=== PATIENT | male | born 1980 ===

== ENCOUNTER 2017-09-20 08:26 | Emergency (ER) | payer OTHER ==
[2017-09-20 08:32] VITALS: BP 134/84; PULSE 109; TEMP 97; O2SAT 97
[2017-09-20 08:33] VITALS: BMI 32.0
[2017-09-20] MEDS ORDERED: Sodium Chloride 0.9% 1,000 ML IV STA ×2 (09:20→09:23)
--- NOTE | 2017-09-20 09:31 | ED PDOC ---
HPI: Abdomen Time Seen by Provider: 09/20/17 09:20 Chief Complaint (Nursing): Abdominal Pain Chief Complaint (Provider): abdominal pain, headache History Per: Patient History/Exam Limitations: no limitations Onset/Duration Of Symptoms: Gradual Outside of [place] travel?: No Current Symptoms Are (Timing): Intermittent Episodes Severity: Mild Location Of Pain/Discomfort: Diffuse Quality Of Discomfort: Cramping Associated Symptoms: Fever, Nausea, Loss Of Appetite, Chest Pain. denies: Diarrhea, Back Pain Exacerbating Factors: None Alleviating Factors: None Additional Complaint(s): 36yo male c/o ongoing abdominal discomfort associated w headache, chills, sore throat. Denies syncope, SOB or melena. Has history etoh abuse, last drink yesterday. Old charts reviewed, seen last night at [facility] had CT brain performed. Past Medical History Reviewed: Historical Data Vital Signs: Last Vital Signs Temp 97 F L 09/20/17 08:32 Pulse 109 H 09/20/17 08:32 Resp BP 134/84 09/20/17 08:32 Pulse Ox 97 09/20/17 09:31 - Medical History PMH: Gastritis, HTN, Seizures Denies: Sexually Transmitted Disease - Surgical History Surgical History: No Surg Hx - Family History Family History: States: Unknown Family Hx - Living Arrangements Living Arrangements: Other - Social History Alcohol: > 2 Drinks/Day - Immunization History Hx Tetanus Toxoid Vaccination: Yes (2014) Hx Influenza Vaccination: Yes Hx Pneumococcal Vaccination: No - Home Medications Home Medications: Ambulatory Orders Medication Instructions Recorded Famotidine [Pepcid] 20 mg PO BID PRN #15 tab 07/15/17 Ondansetron ODT [Zofran ODT] 1 odt PO BID PRN #6 odt 09/18/17 Ergocalciferol [Drisdol 50,000 1 cap PO Q7D #3 cap 09/24/17 Intl Units Cap] Pantoprazole [Protonix EC Tab] 40 mg PO DAILY #30 ect 09/24/17 traZODone [Desyrel] 100 mg PO HS PRN #30 tab 09/24/17 - Allergies Allergies/Adverse Reactions: Allergies Allergy/AdvReac Type Severity Reaction Status Date / Time No Known Allergies Allergy Verified 09/27/17 06:39 Review of Systems ROS Statement: Except As Marked, All Systems Reviewed And Found Negative Constitutional: Positive for: Chills ENT: Positive for: Throat Pain. Negative for: Nose Discharge, Throat Swelling Cardiovascular: Positive for: Chest Pain. Negative for: Palpitations Respiratory: Negative for: Shortness of Breath Gastrointestinal: Positive for: Abdominal Pain. Negative for: Melena, Hematochezia Genitourinary Male: Negative for: Dysuria Musculoskeletal: Negative for: Neck Pain, Shoulder Pain Skin: Negative for: Rash, Lesions, Jaundice Neurological: Positive for: Headache, Dizziness Psych: Negative for: Anxiety Physical Exam - Reviewed Nursing Documentation Reviewed: Yes Vital Signs Reviewed: Yes - Physical Exam Appears: Positive for: Well, Non-toxic, No Acute Distress Head Exam: Positive for: ATRAUMATIC, NORMAL INSPECTION, NORMOCEPHALIC Skin: Positive for: Normal Color, Warm, DRY Eye Exam: Positive for: EOMI, PERRL, Other (old appearing ecchymosis L periorit) . Negative for: Periorbital swelling, Periorbital tenderness ENT: Positive for: Normal ENT Inspection Neck: Positive for: Normal, Painless ROM Cardiovascular/Chest: Positive for: Regular Rate, Rhythm Respiratory: Positive for: CNT, Normal Breath Sounds Gastrointestinal/Abdominal: Positive for: Normal Exam, Bowel Sounds, Soft Back: Positive for: Normal Inspection Extremity: Positive for: Normal ROM, Other (old appearintg ecchymosis L arm and R upper arm) Neurologic/Psych: Positive for: Alert, Oriented. Negative for: Motor/Sensory Deficits, Facial Droop - Laboratory Results Result Diagrams: 09/20/17 09:45 09/20/17 09:45 - ECG O2 Sat by Pulse Oximetry: 97 Medical Decision Making Medical Decision Making: labs reviewed, revealed mild alcohol intoxication monitored in ED for several hours, no signs etoh withdrawal, abdomen nontender and mental status at baseline DC from ED Disposition - Clinical Impression Clinical Impression: Abdominal discomfort, Alcohol abuse - Patient ED Disposition Is Patient to be Admitted: No Counseled Patient/Family Regarding: Studies Performed, Diagnosis, Need For Followup, Rx Given - Disposition Referrals: [facility] [Outside] Disposition: Routine/Home Disposition Time: 13:55 Condition: FAIR Instructions: Abuse of Alcohol (ED) Forms: [facility] (Belarusian) Print Language: CZECH
[2017-09-20 10:08] LABS: BASO % 0.2 % (0.0-2.0); EOS % 0.1 % (0.0-4.0); HEMOGLOBIN 12.2 g/dL (12.0-18.0); LYMPH % 15.8 % (20.0-40.0); MEAN CELL VOLUME 86.1 fl (80.0-94.0); MEAN CORPUSCULAR HEMOGLOBIN 29.3 pg (27.0-31.0); MEAN PLATELET VOLUME 8.7 fl (7.2-11.7); MONO # 0.4 K/uL (0.0-0.8); MONO % 6.4 % (0.0-10.0); NEUT # 4.7 K/uL (1.8-7.0); NEUT % 77.5 % (50.0-75.0); NRBC % 0.1 % (0.0-0.0); RBC 4.18 Mil/uL (4.40-5.90); RED CELL DISTRIBUTION WIDTH 14.6 % (11.5-14.5)
[2017-09-20 10:12] LABS: ALB/GLOB RATIO 0.9 (1.0-2.1); ALBUMIN 3.4 g/dL (3.5-5.0); ALT/SGPT 110 U/L (21-72); AST/SGOT 252 U/L (17-59); BLOOD UREA NITROGEN 10 mg/dl (9-20); CALCIUM 7.7 mg/dL (8.4-10.2); GFR AFRICAN-AMERICAN > 60; GFR NON-AFRICAN AMERICAN > 60; LIPASE 510 U/L (23-300)
[2017-09-20 12:40] LABS: SQUAMOUS EPITHIAL 1 /hpf (0-5); URINE BACTERIA RARE (<OCC); URINE BILIRUBIN NEGATIVE (NEGATIVE); URINE BLOOD NEGATIVE (NEGATIVE); URINE CLARITY SLIGHTY-CLOUDY (Clear); URINE COLOR YELLOW (YELLOW); URINE GLUCOSE (UA) NEG (Normal); URINE LEUKOCYTE ESTERASE NEG Leu/uL (Negative); URINE NITRATE NEGATIVE (NEGATIVE); URINE PROTEIN NEGATIVE (NEGATIVE)
--- NOTE | 2017-09-20 13:22 | CARD ---
APPROVED REPORT EKG Measurement Heart [id number] VA 136P-2 [id number] <Conclusion> Normal sinus rhythm Normal ECG
== END 2017-09-20 14:17 | disposition home or self-care (01) ==
LOC: H.ER 08:26
DX: F10.10 Alcohol abuse, uncomplicated (principal); R10.9 Unspecified abdominal pain; I10 Essential (primary) hypertension
CPT/HCPCS: 80053; 81003; 83690; 84484; 85025; 87804; 93005; 96360; 99282; G0480; J1885; J7040

== ENCOUNTER 2017-09-27 06:13 | Emergency (ER) | payer OTHER ==
[2017-09-27 06:16] VITALS: BMI 32.0
[2017-09-27 06:42] VITALS: BP 130/80; PULSE 81; RESP 16; TEMP 98.8; O2SAT 98
[2017-09-27] MEDS ORDERED: Iohexol 240 (50 ml) PO ONE (07:37)
[2017-09-27] MEDS ORDERED: Morphine 4 MG/ML VIAL IVP STA (07:37)
[2017-09-27] MEDS ORDERED: Sodium Chloride 0.9% 1,000 ML IV STA (07:39)
--- NOTE | 2017-09-27 07:42 | ED PDOC ---
HPI: Abdomen Time Seen by Provider: 09/27/17 07:08 Chief Complaint (Nursing): Abdominal Pain Chief Complaint (Provider): Abdominal Pain History Per: Patient History/Exam Limitations: no limitations Onset/Duration Of Symptoms: Days (x8) Current Symptoms Are (Timing): Still Present Additional Complaint(s): 36 year old male with a past medical history of HTN, gastritis, chronic alcohol abuse, and alcoholic liver disease, who presents to the ED complaining of abdominal pain and vomiting x8 days. Patient was seen at [facility] 1 week ago for alcohol detoxification. Patient states abdominal pain is diffuse and constant. States pain is worse when eating and exacerbated when he sometimes vomits after eating. Confirms mild cough for a couple of days, tactile fever, and body aches , but denies bloody or bilious vomit, diarrhea, and bloody stools. Patient is also complaining of anterior chest pain, exacerbated by vomiting, coughing, or movement. Denies numbness, weakness, blurry vision, double vision, slurred speech, or gait problems. Patient reports his last drink was 15 days ago. PMD: Provider TBD Past Medical History Reviewed: Historical Data, Nursing Documentation, Vital Signs Vital Signs: Last Vital Signs Temp 98.8 F 09/27/17 06:39 Pulse 81 09/27/17 06:39 Resp 16 09/27/17 06:39 BP 130/80 09/27/17 06:39 Pulse Ox 98 09/27/17 14:34 - Medical History PMH: Gastritis, HTN, Seizures Denies: Diabetes, Hepatitis, HIV, Sexually Transmitted Disease Other PMH: Alcoholic Liver Disease - Surgical History Surgical History: No Surg Hx - Family History Family History: States: Unknown Family Hx - Social History Alcohol: Other (chronic abuse) - Immunization History Hx Tetanus Toxoid Vaccination: Yes (2014) Hx Influenza Vaccination: Yes Hx Pneumococcal Vaccination: No - Home Medications Home Medications: Ambulatory Orders Medication Instructions Recorded Ondansetron ODT [Zofran ODT] 1 odt PO BID PRN #6 odt 09/18/17 Ergocalciferol [Drisdol 50,000 1 cap PO Q7D #3 cap 09/24/17 Intl Units Cap] traZODone [Desyrel] 100 mg PO HS PRN #30 tab 09/24/17 Famotidine [Pepcid] 20 mg PO BID PRN #15 tab 09/27/17 Pantoprazole [Protonix EC Tab] 40 mg PO DAILY #30 ect 09/27/17 - Allergies Allergies/Adverse Reactions: Allergies Allergy/AdvReac Type Severity Reaction Status Date / Time No Known Allergies Allergy Verified 09/27/17 06:39 Review of Systems ROS Statement: Except As Marked, All Systems Reviewed And Found Negative Constitutional: Positive for: Fever, Other (body aches) Eyes: Negative for: Vision Change Cardiovascular: Positive for: Chest Pain Respiratory: Positive for: Cough Gastrointestinal: Positive for: Vomiting, Abdominal Pain. Negative for: Diarrhea, Hematochezia, Hematemesis Neurological: Negative for: Numbness, Incoordination, Change in Speech Physical Exam - Reviewed Nursing Documentation Reviewed: Yes Vital Signs Reviewed: Yes - Physical Exam Appears: Positive for: Non-toxic, No Acute Distress Head Exam: Positive for: ATRAUMATIC, NORMAL INSPECTION, NORMOCEPHALIC Skin: Positive for: Normal Color, Warm, Dry. Negative for: Rash Eye Exam: Positive for: EOMI, Normal appearance, PERRL Neck: Positive for: Normal, Painless ROM, Supple Cardiovascular/Chest: Positive for: Regular Rate, Rhythm. Negative for: Chest Non Tender (anterior chest wall tenderness), Murmur Respiratory: Positive for: Normal Breath Sounds. Negative for: Respiratory Distress Gastrointestinal/Abdominal: Positive for: Tenderness (diffuse, mild) Back: Positive for: Normal Inspection. Negative for: L CVA Tenderness, R CVA Tenderness, Vertebral Tenderness Extremity: Positive for: Normal ROM. Negative for: Pedal Edema, Deformity Neurologic/Psych: Positive for: Alert, Oriented (x3). Negative for: Motor/ Sensory Deficits, Gait - Laboratory Results Result Diagrams: 09/27/17 08:25 09/27/17 08:25 - ECG O2 Sat by Pulse Oximetry: 98 (RA) Pulse Ox Interpretation: Normal - Progress Re-evaluation Time: 14:30 Condition: Re-examined, Improved Medical Decision Making Medical Decision Making: Time: 07:37 Initial Impression: Abdominal pain with vomiting and chest pain. Differential diagnoses include, but are not limited to acute pancreatitis, acute gastritis, cholecystitis, and appendicitis. For chest pain, include ACS, musculoskeletal pain, and pneumonia. Initial Plan: --CT Abdomen and Pelvis --EKG --CMP --Lipase --Troponin I --CBC w/ differential --Chest X-Ray 1 view --Morphine 4 mg IVP --Iohexol 50 ml PO --Pepcid 20 mg IVP --Zofran Inj 4 mg IVP --IV Insertion --Reevaluation --CXR shows no active disease Time: 11:57 CT ABDOMEN AND PELVIS W/ CONTRAST FINDINGS: LOWER THORAX: Trace bilateral basilar dependent atelectasis is noted with the lung bases otherwise unremarkable. LIVER: Diminished attenuation throughout the liver it indicates hepatic steatosis diffusely. No definitive hepatic mass appreciable. GALLBLADDER AND BILE DUCTS: Gallbladder is rather distended but without significant mural thickening or pericholecystic fluid collection related. There is no radiodense cholelithiasis is appreciated. No definite dilatation of the intra and extrahepatic bile ducts. PANCREAS: Unremarkable. No gross lesion or ductal dilatation. SPLEEN: Unremarkable. ADRENALS: Unremarkable. No mass. KIDNEYS AND URETERS: Unremarkable. No hydronephrosis. No solid mass. VASCULATURE: Unremarkable. No aortic aneurysm. BOWEL: The stomach appears unremarkable. Prominent fecal loading seen throughout the majority colon sparing the distal rectosigmoid somewhat. No bowel obstruction is appreciable. No pericolic reaction. A past of small bowel is diffusely unremarkable. APPENDIX: Normal appendix. PERITONEUM: Unremarkable. No free fluid. No free air. LYMPH NODES: Unremarkable. No enlarged lymph nodes. BLADDER: Unremarkable. REPRODUCTIVE: Unremarkable. BONES: No acute fracture. OTHER FINDINGS: None. IMPRESSION: Hepatic steatosis appreciated without focal mass or intrahepatic biliary dilatation. The gallbladder is distended but otherwise appears unremarkable. No bowel or urinary tract obstruction, mesenteric edema, ascites or free intraperitoneal gas. Time: 12:24 --Lidocaine 2% Viscous 15 mL --Maalox 30 ml PO --US Gallbladder --Reevaluation Time: 14:18 US ABDOMEN LIMITED: LIVER: Measures 14.0 cm in length. There is diffuse increased echogenicity of the liver parenchyma. No mass. No intrahepatic bile duct dilatation. GALLBLADDER: There are no gallstones, wall thickening or pericholecystic fluid. The sonographic London's sign is negative. COMMON BILE DUCT: Measures 3.3 mm. No stones. No dilatation. PANCREAS: Unremarkable as visualized. No mass. No ductal dilatation. RIGHT KIDNEY: Measures 10.0 cm in length. Normal echogenicity. No calculus, mass, or hydronephrosis. AORTA: No aneurysmal dilatation. IVC: Unremarkable. OTHER FINDINGS: None . IMPRESSION: Diffuse increased echogenicity in the liver may reflect hepatic steatosis however parenchymal infectious/ inflammatory etiologies cannot be entirely excluded. Clinical and laboratory correlation is advised. No evidence of cholelithiasis or biliary dilatation. Scribe Attestation: Documented by Peng Mercado, acting as a scribe for Alba Solares MD. Provider Scribe Attestation: All medical record entries made by the Scribe were at my direction and personally dictated by me. I have reviewed the chart and agree that the record accurately reflects my personal performance of the history, physical exam, medical decision making, and the department course for this patient. I have also personally directed, reviewed, and agree with the discharge instructions and disposition. Disposition - Clinical Impression Clinical Impression: Alcoholic gastritis, Abdominal pain - Patient ED Disposition Is Patient to be Admitted: No Doctor Will See Patient In The: Office Counseled Patient/Family Regarding: Studies Performed, Diagnosis, Need For Followup - Disposition Referrals: [facility] [Outside] Disposition: Routine/Home Disposition Time: 14:30 Condition: GOOD Additional Instructions: Take your medications as instructed. Follow up with your PCP in 2-3 days. Prescriptions: Famotidine [Pepcid] 20 mg PO BID PRN #15 tab PRN Reason: abdominal Pantoprazole [Protonix EC Tab] 40 mg PO DAILY #30 ect Instructions: Gastritis (DC) Print Language: GUATEMALAN
[2017-09-27] MEDS ORDERED: Morphine 4 MG/ML VIAL ONE (08:13)
[2017-09-27] MEDS ORDERED: Iohexol 240 (50 ml) ONE (08:14)
[2017-09-27] MEDS ORDERED: Lactated Ringer's 1,000 ML IV SCH (08:15)
[2017-09-27 08:39] LABS: BENZODIAZEPINES, UR NEGATIVE (NEGATIVE)
[2017-09-27 08:57] LABS: BASO % 0.5 % (0.0-2.0); EOS # 0.1 K/uL (0.0-0.7); EOS % 1.8 % (0.0-4.0); HEMOGLOBIN 11.3 g/dL (12.0-18.0); LYMPH # 1.4 K/uL (1.0-4.3); LYMPH % 38.3 % (20.0-40.0); MEAN CELL VOLUME 90.2 fl (80.0-94.0); MEAN CORPUSCULAR HEMOGLOBIN 29.4 pg (27.0-31.0); MEAN CORPUSCULAR HGB CONC 32.6 g/dL (33.0-37.0); MEAN PLATELET VOLUME 8.1 fl (7.2-11.7); MONO # 0.6 K/uL (0.0-0.8); NEUT # 1.5 K/uL (1.8-7.0); NEUT % 41.4 % (50.0-75.0); RBC 3.85 Mil/uL (4.40-5.90); RED CELL DISTRIBUTION WIDTH 15.4 % (11.5-14.5); WHITE BLOOD COUNT 3.6 K/uL (4.8-10.8)
[2017-09-27 08:59] LABS: ALB/GLOB RATIO 0.9 (1.0-2.1); ALBUMIN 3.7 g/dL (3.5-5.0); ALT/SGPT 89 U/L (21-72); AST/SGOT 76 U/L (17-59); BLOOD UREA NITROGEN 8 mg/dl (9-20); CALCIUM 8.4 mg/dL (8.4-10.2); GFR AFRICAN-AMERICAN > 60; GFR NON-AFRICAN AMERICAN > 60; LIPASE 176 U/L (23-300)
--- NOTE | 2017-09-27 09:01 | RAD ---
PROCEDURE: CHEST RADIOGRAPH, 1 VIEW HISTORY: Chest pain COMPARISON: None available. FINDINGS: LUNGS: The lungs are well inflated and clear. PLEURA: No pneumothorax or pleural fluid seen. CARDIOVASCULAR: Normal. OSSEOUS STRUCTURES: No significant abnormalities. VISUALIZED UPPER ABDOMEN: Normal. OTHER FINDINGS: None. IMPRESSION: No active pulmonary disease.
[2017-09-27 09:08] LABS: BARBITURATES, UR NEGATIVE (NEGATIVE); OPIATES, UR NEGATIVE (NEGATIVE); PHENCYCLIDINE, UR NEGATIVE (NEGATIVE)
[2017-09-27] MEDS ORDERED: Iohexol 300 100 ML IJ ONE (10:42)
[2017-09-27] MEDS ORDERED: Sodium Chloride 0.9% 50 ML IV ONE (10:42)
--- NOTE | 2017-09-27 11:58 | CT ---
PROCEDURE: CT Abdomen and Pelvis with contrast HISTORY: abdominal pain vomiting alcohol abuse COMPARISON: None. TECHNIQUE: Contrast dose: Omnipaque 300, 96 cc Radiation dose: Total exam DLP = 1074.60 mGy-cm. This CT exam was performed using one or more of the following dose reduction techniques: Automated exposure control, adjustment of the mA and/or kV according to patient size, and/or use of iterative reconstruction technique. FINDINGS: LOWER THORAX: Trace bilateral basilar dependent atelectasis is noted with the lung bases otherwise unremarkable. LIVER: Diminished attenuation throughout the liver it indicates hepatic steatosis diffusely. No definitive hepatic mass appreciable. GALLBLADDER AND BILE DUCTS: Gallbladder is rather distended but without significant mural thickening or pericholecystic fluid collection related. There is no radiodense cholelithiasis is appreciated. No definite dilatation of the intra and extrahepatic bile ducts. PANCREAS: Unremarkable. No gross lesion or ductal dilatation. SPLEEN: Unremarkable. ADRENALS: Unremarkable. No mass. KIDNEYS AND URETERS: Unremarkable. No hydronephrosis. No solid mass. VASCULATURE: Unremarkable. No aortic aneurysm. BOWEL: The stomach appears unremarkable. Prominent fecal loading seen throughout the majority colon sparing the distal rectosigmoid somewhat. No bowel obstruction is appreciable. No pericolic reaction. A past of small bowel is diffusely unremarkable. APPENDIX: Normal appendix. PERITONEUM: Unremarkable. No free fluid. No free air. LYMPH NODES: Unremarkable. No enlarged lymph nodes. BLADDER: Unremarkable. REPRODUCTIVE: Unremarkable. BONES: No acute fracture. OTHER FINDINGS: None. IMPRESSION: Hepatic steatosis appreciated without focal mass or intrahepatic biliary dilatation. The gallbladder is distended but otherwise appears unremarkable. No bowel or urinary tract obstruction, mesenteric edema, ascites or free intraperitoneal gas.
[2017-09-27] MEDS ORDERED: Alum-Mag Hydrox-Simethicone Susp (30 mL) ONE (12:36)
[2017-09-27] MEDS ORDERED: Alum-Mag Hydrox-Simethicone Susp (30 mL) PO ONE (13:00)
--- NOTE | 2017-09-27 14:19 | US ---
HISTORY: Abdominal pain COMPARISON: None. TECHNIQUE: Sonographic evaluation of the right upper quadrant of the abdomen. FINDINGS: LIVER: Measures 14.0 cm in length. There is diffuse increased echogenicity of the liver parenchyma. No mass. No intrahepatic bile duct dilatation. GALLBLADDER: There are no gallstones, wall thickening or pericholecystic fluid. The sonographic London's sign is negative. COMMON BILE DUCT: Measures 3.3 mm. No stones. No dilatation. PANCREAS: Unremarkable as visualized. No mass. No ductal dilatation. RIGHT KIDNEY: Measures 10.0 cm in length. Normal echogenicity. No calculus, mass, or hydronephrosis. AORTA: No aneurysmal dilatation. IVC: Unremarkable. OTHER FINDINGS: None . IMPRESSION: Diffuse increased echogenicity in the liver may reflect hepatic steatosis however parenchymal infectious/ inflammatory etiologies cannot be entirely excluded. Clinical and laboratory correlation is advised. No evidence of cholelithiasis or biliary dilatation.
--- NOTE | 2017-09-27 21:29 | CARD ---
APPROVED REPORT EKG Measurement Heart [id number] OH 136P-5 [id number] <Conclusion> Sinus bradycardia Minimal voltage criteria for LVH, may be normal variant Borderline ECG
== END 2017-09-27 10:00 | disposition home or self-care (01) ==
LOC: H.ER 06:13
DX: K29.20 Alcoholic gastritis without bleeding (principal); I10 Essential (primary) hypertension; K76.0 Fatty (change of) liver, not elsewhere classified
CPT/HCPCS: 71045; 74177; 76705; 80053; 80320; 80324; 80345; 80346; 80349; 80353; 80358; 80361; 83690; 83992; 84484; 85025; 93005; 96374; 96375; 99281; J2270; J2405; J7120; Q9966; Q9967

== ENCOUNTER 2017-11-24 06:27 | Emergency (ER) | payer OTHER ==
[2017-11-24 06:28] VITALS: BMI 32.0
[2017-11-24] MEDS ORDERED: Sodium Chloride 0.9% 1,000 ML IV STA (07:42)
--- NOTE | 2017-11-24 07:53 | ED PDOC ---
HPI: Abdomen Time Seen by Provider: 11/24/17 07:00 Chief Complaint (Nursing): Abdominal Pain Chief Complaint (Provider): Abdominal Pain History Per: Patient History/Exam Limitations: no limitations Onset/Duration Of Symptoms: Days (x 2) Current Symptoms Are (Timing): Still Present Additional Complaint(s): Abdullahi is a 37 y/o male with a history of alcoholic gastritis, alcoholic abuse , and chronic abdominal pain who presents to the ED complaining of abdominal pain for the past 2 days. Patient also complains of associated vomiting, fever, body aches, and headache. He denies diarrhea. PMD: None Provided Past Medical History Reviewed: Historical Data, Nursing Documentation, Vital Signs Vital Signs: Last Vital Signs Temp 98.0 F 11/24/17 09:35 Pulse 82 11/24/17 09:35 Resp 14 11/24/17 09:35 BP 126/79 11/24/17 09:35 Pulse Ox 97 11/25/17 21:09 - Medical History PMH: Gastritis, HTN, Seizures Denies: Diabetes, Hepatitis, HIV, Sexually Transmitted Disease - Family History Family History: States: Unknown Family Hx - Social History Alcohol: > 2 Drinks/Day (last drink 2 days ago) Drugs: Denies - Immunization History Hx Tetanus Toxoid Vaccination: Yes (2014) Hx Influenza Vaccination: Yes Hx Pneumococcal Vaccination: No - Home Medications Home Medications: Ambulatory Orders Medication Instructions Recorded Ondansetron ODT [Zofran ODT] 1 odt PO BID PRN #6 odt 09/18/17 Ergocalciferol [Drisdol 50,000 1 cap PO Q7D #3 cap 09/24/17 Intl Units Cap] traZODone [Desyrel] 100 mg PO HS PRN #30 tab 09/24/17 Famotidine [Pepcid] 20 mg PO BID PRN #15 tab 09/27/17 Pantoprazole [Protonix EC Tab] 40 mg PO DAILY #30 ect 09/27/17 - Allergies Allergies/Adverse Reactions: Allergies Allergy/AdvReac Type Severity Reaction Status Date / Time No Known Allergies Allergy Verified 11/24/17 06:55 Review of Systems ROS Statement: Except As Marked, All Systems Reviewed And Found Negative Constitutional: Positive for: Fever, Malaise Respiratory: Positive for: Cough (dry) Gastrointestinal: Positive for: Vomiting, Abdominal Pain. Negative for: Diarrhea Neurological: Positive for: Headache Physical Exam - Reviewed Nursing Documentation Reviewed: Yes Vital Signs Reviewed: Yes - Physical Exam Appears: Positive for: Uncomfortable Skin: Positive for: Normal Color, Warm, Dry Eye Exam: Positive for: Normal appearance ENT: Positive for: Normal ENT Inspection Cardiovascular/Chest: Positive for: Regular Rate, Rhythm. Negative for: Murmur Respiratory: Positive for: Normal Breath Sounds. Negative for: Wheezing, Respiratory Distress Gastrointestinal/Abdominal: Positive for: Soft, Tenderness (diffuse) Neurologic/Psych: Positive for: Alert, Oriented - Laboratory Results Result Diagrams: 11/24/17 08:00 11/24/17 08:00 - ECG O2 Sat by Pulse Oximetry: 97 (RA) Pulse Ox Interpretation: Normal Medical Decision Making Medical Decision Making: Time: 7:42 Initial Impression: Abdominal Pain Initial Plan: --CMP --Lipase --CBC --Pepcid Time: 10:24 --CT Abd & Pelvis w/o Contrast --Alcohol Serum --Flu Swab --Toradol --Zofran Alcohol: 228 Flu: Negative Time: 11:30 CT ABD PELVIS FINDINGS: LOWER THORAX: The lung bases are clear. LIVER: Normal in size and there is diffuse fatty infiltration. No gross lesion or ductal dilatation. GALLBLADDER AND BILE DUCTS: No calcified gallstones. PANCREAS: Normal in size. No gross lesion or ductal dilatation. SPLEEN: Normal in size. ADRENALS: No discrete nodule. KIDNEYS AND URETERS: Both kidneys are normal in size without nephrolithiasis. No hydronephrosis. VASCULATURE: No aortic aneurysm. BOWEL: The small bowel loops are normal in caliber. The colon is unremarkable. No bowel dilatation, wall thickening or obstruction. APPENDIX: Normal appendix. PERITONEUM: No free fluid. No free air. LYMPH NODES: No enlarged lymph nodes. BLADDER: The urinary bladder is partially distended and there is apparent mild mural thickening of the anterior bladder wall. REPRODUCTIVE: The prostate gland is normal in size. BONES: No acute fracture. Within normal limits for the patient's age. OTHER FINDINGS: None. IMPRESSION: 1. No acute abdominal or pelvic abnormality. 2. Fatty liver. 3. Apparent mild mural thickening of the anterior urinary bladder wall is nonspecific and could be related to underdistention however early cystitis cannot be excluded. Please correlate with urine analysis. Time: 14:03 --Urine Dip negative pt feels better, tolerated po in the ED stable for dc Scribe Attestation: Documented by Dereje Tidwell, acting as a scribe for Gilles Peters MD Provider Scribe Attestation: All medical record entries made by the Scribe were at my direction and personally dictated by me. I have reviewed the chart and agree that the record accurately reflects my personal performance of the history, physical exam, medical decision making, and the department course for this patient. I have also personally directed, reviewed, and agree with the discharge instructions and disposition. Disposition - Clinical Impression Clinical Impression: Alcohol use disorder, severe, dependence - Patient ED Disposition Is Patient to be Admitted: No Counseled Patient/Family Regarding: Studies Performed, Diagnosis, Need For Followup - Disposition Referrals: [facility] [Outside] [facility] [Outside] Disposition: Routine/Home Disposition Time: 12:15 Condition: IMPROVED Additional Instructions: follow up with your primary doctor in 1-2 days return to the ED with any worsening or concerning symptoms Instructions: Alcohol Abuse and Alcoholism (DC) Forms: [employer] (Jamaican) Print Language: SAUDI ARABIAN
[2017-11-24 08:18] LABS: BASO % 0.8 % (0.0-2.0); EOS % 0.1 % (0.0-4.0); HEMOGLOBIN 14.6 g/dL (12.0-18.0); LYMPH # 1.8 K/uL (1.0-4.3); LYMPH % 37.6 % (20.0-40.0); MEAN CELL VOLUME 85.3 fl (80.0-94.0); MEAN CORPUSCULAR HEMOGLOBIN 28.8 pg (27.0-31.0); MEAN CORPUSCULAR HGB CONC 33.7 g/dL (33.0-37.0); MEAN PLATELET VOLUME 8.4 fl (7.2-11.7); MONO # 0.2 K/uL (0.0-0.8); NEUT # 2.7 K/uL (1.8-7.0); NEUT % 56.5 % (50.0-75.0); NRBC % 0.3 % (0.0-0.0); RBC 5.09 Mil/uL (4.40-5.90); RED CELL DISTRIBUTION WIDTH 14.7 % (11.5-14.5); WHITE BLOOD COUNT 4.8 K/uL (4.8-10.8)
[2017-11-24 08:30] LABS: ALBUMIN 4.2 g/dL (3.5-5.0); ALT/SGPT 53 U/L (21-72); AST/SGOT 63 U/L (17-59); BLOOD UREA NITROGEN 17 mg/dl (9-20); CALCIUM 8.2 mg/dL (8.4-10.2); GFR AFRICAN-AMERICAN > 60; GFR NON-AFRICAN AMERICAN > 60; LIPASE 197 U/L (23-300)
[2017-11-24 09:50] VITALS: BP 126/79; PULSE 82; RESP 14; TEMP 98
--- NOTE | 2017-11-24 11:24 | CT ---
PROCEDURE: CT Abdomen and Pelvis without intravenous contrast HISTORY: Abdominal pain COMPARISON: 09/27/2017. TECHNIQUE: CT scan of the abdomen and pelvis was performed without administration of intravenous contrast. Oral contrast was not administered. Coronal and sagittal reformatted images were obtained. Radiation dose: Total exam DLP = Total exam DLP = 659.10 MGy-cm. This CT exam was performed using one or more of the following dose reduction techniques: Automated exposure control, adjustment of the mA and/or kV according to patient size, and/or use of iterative reconstruction technique. FINDINGS: LOWER THORAX: The lung bases are clear. LIVER: Normal in size and there is diffuse fatty infiltration. No gross lesion or ductal dilatation. GALLBLADDER AND BILE DUCTS: No calcified gallstones. PANCREAS: Normal in size. No gross lesion or ductal dilatation. SPLEEN: Normal in size. ADRENALS: No discrete nodule. KIDNEYS AND URETERS: Both kidneys are normal in size without nephrolithiasis. No hydronephrosis. VASCULATURE: No aortic aneurysm. BOWEL: The small bowel loops are normal in caliber. The colon is unremarkable. No bowel dilatation, wall thickening or obstruction. APPENDIX: Normal appendix. PERITONEUM: No free fluid. No free air. LYMPH NODES: No enlarged lymph nodes. BLADDER: The urinary bladder is partially distended and there is apparent mild mural thickening of the anterior bladder wall. REPRODUCTIVE: The prostate gland is normal in size. BONES: No acute fracture. Within normal limits for the patient's age. OTHER FINDINGS: None. IMPRESSION: 1. No acute abdominal or pelvic abnormality. 2. Fatty liver. 3. Apparent mild mural thickening of the anterior urinary bladder wall is nonspecific and could be related to underdistention however early cystitis cannot be excluded. Please correlate with urine analysis.
[2017-11-24 14:05] VITALS: O2SAT 97
== END 2017-11-24 14:37 | disposition home or self-care (01) ==
LOC: H.ER 06:27
DX: R10.9 Unspecified abdominal pain (principal); K29.20 Alcoholic gastritis without bleeding; F10.20 Alcohol dependence, uncomplicated; I10 Essential (primary) hypertension; K76.0 Fatty (change of) liver, not elsewhere classified
CPT/HCPCS: 74176; 80053; 80320; 83690; 85025; 87804; 96374; 99285; J1885; J7040

== ENCOUNTER 2017-11-28 05:55 | Emergency (ER) | payer OTHER ==
[2017-11-28 05:55] VITALS: BMI 32.0
[2017-11-28 06:10] VITALS: BP 126/87; PULSE 121; RESP 18; TEMP 98.9; O2SAT 98
[2017-11-28] MEDS ORDERED: Sodium Chloride 0.9% 1,000 ML IV STA (06:28)
[2017-11-28] MEDS ORDERED: Multivitamin (MVI) 10 ML, Thiamine 100 MG, Folic Acid 1 MG in Dextrose 5%/0.45% NS 1,00... IV ONE (06:58)
--- NOTE | 2017-11-28 07:46 | ED PDOC ---
HPI: Abdomen Time Seen by Provider: 11/28/17 06:15 Chief Complaint (Nursing): Abdominal Pain Chief Complaint (Provider): Abdominal pain History Per: Patient History/Exam Limitations: no limitations Onset/Duration Of Symptoms: Days (4x) Current Symptoms Are (Timing): Still Present Location Of Pain/Discomfort: Diffuse Quality Of Discomfort: "Pain" Associated Symptoms: Chills, Vomiting, Chest Pain. denies: Diarrhea, Other ( bloody stool) Additional Complaint(s): 37 year old male with HTN and gastritis presents to the ED complaining of vomiting, abdominal pain, and chest pain. Reports of drinking excessive amount of alcohol since 4 days and has developed abdominal pain that travels to his chest. Also has chills. Denies bloody stool, diarrhea, or headache. PMD: None Past Medical History Reviewed: Historical Data, Nursing Documentation, Vital Signs Vital Signs: Last Vital Signs Temp 98.9 F 11/28/17 06:07 Pulse 121 H 11/28/17 06:07 Resp 18 11/28/17 06:07 BP 126/87 11/28/17 06:07 Pulse Ox 98 11/28/17 09:32 - Medical History PMH: Gastritis, HTN, Seizures Denies: Diabetes, Hepatitis, HIV, Sexually Transmitted Disease - Surgical History Surgical History: No Surg Hx - Family History Family History: States: Unknown Family Hx - Immunization History Hx Tetanus Toxoid Vaccination: Yes (2014) Hx Influenza Vaccination: Yes Hx Pneumococcal Vaccination: No - Home Medications Home Medications: Ambulatory Orders Medication Instructions Recorded Famotidine [Pepcid] 20 mg PO BID #20 tab 11/28/17 - Allergies Allergies/Adverse Reactions: Allergies Allergy/AdvReac Type Severity Reaction Status Date / Time No Known Allergies Allergy Verified 11/28/17 11:27 Review of Systems ROS Statement: Except As Marked, All Systems Reviewed And Found Negative Constitutional: Positive for: Chills Gastrointestinal: Positive for: Vomiting, Abdominal Pain. Negative for: Diarrhea, Other (bloody stool) Neurological: Negative for: Headache Physical Exam - Reviewed Nursing Documentation Reviewed: Yes Vital Signs Reviewed: Yes - Physical Exam Appears: Positive for: Non-toxic, No Acute Distress Head Exam: Positive for: ATRAUMATIC, NORMAL INSPECTION, NORMOCEPHALIC Skin: Positive for: Normal Color, Warm, Dry Eye Exam: Positive for: EOMI, Normal appearance, PERRL ENT: Positive for: Normal ENT Inspection Neck: Positive for: Normal, Painless ROM, Supple. Negative for: Decreased ROM Cardiovascular/Chest: Positive for: Tachycardia Respiratory: Positive for: Normal Breath Sounds. Negative for: Decreased Breath Sounds, Accessory Muscle Use, Respiratory Distress Gastrointestinal/Abdominal: Positive for: Tenderness (diffused) Back: Positive for: Normal Inspection. Negative for: L CVA Tenderness, R CVA Tenderness Extremity: Positive for: Normal ROM. Negative for: Tenderness, Pedal Edema, Deformity Neurologic/Psych: Positive for: Alert, Oriented (x3). Negative for: Motor/ Sensory Deficits - Laboratory Results Result Diagrams: 11/28/17 07:25 11/28/17 07:25 - ECG O2 Sat by Pulse Oximetry: 98 (RA) Pulse Ox Interpretation: Normal Medical Decision Making Medical Decision Making: Time: 626 Initial Impression: Abdominal Pain, Chest Pain, Alcohol abuse Differential Diagnosis includes but is not limited to: epigastric, pancreatitis , and other conditions are considered Initial Plan: --Abd & Pelvis IV Contrast [CT] --EKG --CMP --Lipase --ED Urine dipstick --Dextrose 5%/0.45% NS 1,000ml --Morphine 4mg --Normal Saline 1000 mls/ hr --Zofran 4mg --Reevaluation Time: 699 Patient signed out by me to Dr. Esparza pending CT and reevaluation. Scribe Attestation: Documented by William Tristan, acting as a scribe for Alba Solares MD Provider Scribe Attestation: All medical record entries made by the Scribe were at my direction and personally dictated by me. I have reviewed the chart and agree that the record accurately reflects my personal performance of the history, physical exam, medical decision making, and the department course for this patient. I have also personally directed, reviewed, and agree with the discharge instructions and disposition. Disposition - Clinical Impression Clinical Impression: Abdominal pain, Alcoholic gastritis - Patient ED Disposition Is Patient to be Admitted: Transfer of Care - Disposition Referrals: [facility] [Outside] Disposition: Transfer of Care Disposition Time: 07:00 Condition: STABLE Instructions: Gastritis, Acute Abdomen (Belly Pain), Alcohol Abuse and Alcoholism (DC) Forms: [employer] (Chinese) Print Language: MALIAN Patient Signed Over To: Carrol Esparza Handoff Comments: pending CT
--- NOTE | 2017-11-28 07:57 | ED PDOC ---
- Laboratory Results Result Diagrams: 11/28/17 07:25 11/28/17 07:25 - ECG O2 Sat by Pulse Oximetry: 98 (RA) Pulse Ox Interpretation: Normal Medical Decision Making Medical Decision Making: Time: 699 Patient signed out to me by Dr. Solares pending CT and reevaluation. Time: 847 PROCEDURE: CT Abdomen and Pelvis with contrast FINDINGS: LOWER THORAX: Elevation of the right hemidiaphragm. Bibasilar atelectasis. No focal consolidation. Heart size normal. LIVER: Hepatic steatosis. No gross lesion or ductal dilatation. GALLBLADDER AND BILE DUCTS: Gallbladder distension without wall thickening/edema or pericholecystic fluid. No ductal dilatation. PANCREAS: Unremarkable. No gross lesion or ductal dilatation. SPLEEN: Unremarkable. ADRENALS: Unremarkable. No mass. KIDNEYS AND URETERS: Unremarkable. No hydronephrosis. No solid mass. VASCULATURE: Unremarkable. No aortic aneurysm. BOWEL: Unremarkable. No obstruction. No gross mural thickening. APPENDIX: Normal appendix. PERITONEUM: Unremarkable. No free fluid. No free air. LYMPH NODES: Unremarkable. No enlarged lymph nodes. BLADDER: Unremarkable. REPRODUCTIVE: Unremarkable. BONES: Old right lateral 5th and 6th rib fractures. No acute fracture. OTHER FINDINGS: None. IMPRESSION: No acute abdominal pelvic pathology. Time: 930 Patient is sleeping comfortably. Scribe Attestation: Documented by William Tristan, acting as a scribe for Carrol Esaprza MD Provider Scribe Attestation: All medical record entries made by the Scribe were at my direction and personally dictated by me. I have reviewed the chart and agree that the record accurately reflects my personal performance of the history, physical exam, medical decision making, and the department course for this patient. I have also personally directed, reviewed, and agree with the discharge instructions and disposition. Disposition - Disposition Condition: STABLE Forms: [employer] (Greenlandic)
[2017-11-28] MEDS ORDERED: Iohexol 300 100 ML IJ ONE (08:06)
[2017-11-28] MEDS ORDERED: Sodium Chloride 0.9% 100 ML ONE (08:06)
[2017-11-28 08:09] LABS: BASO % 0.6 % (0.0-2.0); EOS % 0.2 % (0.0-4.0); HEMOGLOBIN 13.5 g/dL (12.0-18.0); LYMPH # 1.3 K/uL (1.0-4.3); MEAN CELL VOLUME 85.5 fl (80.0-94.0); MEAN CORPUSCULAR HEMOGLOBIN 29.4 pg (27.0-31.0); MEAN CORPUSCULAR HGB CONC 34.4 g/dL (33.0-37.0); MEAN PLATELET VOLUME 8.8 fl (7.2-11.7); MONO # 0.3 K/uL (0.0-0.8); MONO % 7.3 % (0.0-10.0); NEUT # 2.3 K/uL (1.8-7.0); NEUT % 57.9 % (50.0-75.0); NRBC % 0.1 % (0.0-0.0); RBC 4.61 Mil/uL (4.40-5.90); RED CELL DISTRIBUTION WIDTH 14.9 % (11.5-14.5); WHITE BLOOD COUNT 3.9 K/uL (4.8-10.8)
[2017-11-28 08:38] LABS: ALBUMIN 3.9 g/dL (3.5-5.0); ALT/SGPT 50 U/L (21-72); AST/SGOT 67 U/L (17-59); BLOOD UREA NITROGEN 12 mg/dl (9-20); CALCIUM 8.2 mg/dL (8.4-10.2); GFR AFRICAN-AMERICAN > 60; GFR NON-AFRICAN AMERICAN > 60; LIPASE 253 U/L (23-300)
--- NOTE | 2017-11-28 08:50 | CT ---
PROCEDURE: CT Abdomen and Pelvis with contrast HISTORY: abdominal pain COMPARISON: None. TECHNIQUE: Contrast dose: 95 mL Omnipaque 300 Radiation dose: Total exam DLP = 786.2 mGy-cm. This CT exam was performed using one or more of the following dose reduction techniques: Automated exposure control, adjustment of the mA and/or kV according to patient size, and/or use of iterative reconstruction technique. FINDINGS: LOWER THORAX: Elevation of the right hemidiaphragm. Bibasilar atelectasis. No focal consolidation. Heart size normal. LIVER: Hepatic steatosis. No gross lesion or ductal dilatation. GALLBLADDER AND BILE DUCTS: Gallbladder distension without wall thickening/edema or pericholecystic fluid. No ductal dilatation. PANCREAS: Unremarkable. No gross lesion or ductal dilatation. SPLEEN: Unremarkable. ADRENALS: Unremarkable. No mass. KIDNEYS AND URETERS: Unremarkable. No hydronephrosis. No solid mass. VASCULATURE: Unremarkable. No aortic aneurysm. BOWEL: Unremarkable. No obstruction. No gross mural thickening. APPENDIX: Normal appendix. PERITONEUM: Unremarkable. No free fluid. No free air. LYMPH NODES: Unremarkable. No enlarged lymph nodes. BLADDER: Unremarkable. REPRODUCTIVE: Unremarkable. BONES: Old right lateral 5th and 6th rib fractures. No acute fracture. OTHER FINDINGS: None. IMPRESSION: No acute abdominal pelvic pathology.
--- NOTE | 2017-11-28 10:38 | CARD ---
APPROVED REPORT EKG Measurement Heart [id number] <Conclusion> Normal sinus rhythm Left axis deviation Pulmonary disease pattern Abnormal ECG
== END 2017-11-28 10:38 | disposition home or self-care (01) ==
LOC: H.ER 05:55
DX: K29.20 Alcoholic gastritis without bleeding (principal); F10.10 Alcohol abuse, uncomplicated; I10 Essential (primary) hypertension
CPT/HCPCS: 74177; 80053; 83690; 84484; 85025; 93005; 96361; 96374; 96375; 99284; J2270; J2405; J3411; J7040; J7042; Q9967

== ENCOUNTER 2017-11-28 11:16 | Emergency (ER) | payer OTHER ==
[2017-11-28 11:16] VITALS: BMI 32.0
[2017-11-28 11:29] VITALS: O2SAT 98
[2017-11-28] MEDS ORDERED: Famotidine 40 MG/5 ML PO STA (11:33)
--- NOTE | 2017-11-28 11:37 | ED PDOC ---
HPI: Abdomen Time Seen by Provider: 11/28/17 11:30 Chief Complaint (Nursing): Medical Clearance Chief Complaint (Provider): Abdominal pain History Per: Patient History/Exam Limitations: no limitations Additional Complaint(s): Pt reports abdominal pain, was discharged from this ED 2 hours [employer] after presenting with same complaint. Past Medical History Reviewed: Nursing Documentation, Vital Signs Vital Signs: Last Vital Signs Temp 97.9 F 11/28/17 13:30 Pulse 81 11/28/17 13:30 Resp 14 11/28/17 13:30 BP 126/79 11/28/17 13:30 Pulse Ox 98 11/28/17 13:30 - Medical History PMH: Gastritis, HTN, Seizures Denies: Diabetes, Hepatitis, HIV, Sexually Transmitted Disease - Family History Family History: States: Unknown Family Hx - Social History Alcohol: > 2 Drinks/Day - Immunization History Hx Tetanus Toxoid Vaccination: Yes (2014) Hx Influenza Vaccination: Yes Hx Pneumococcal Vaccination: No - Home Medications Home Medications: Ambulatory Orders Medication Instructions Recorded Ondansetron ODT [Zofran ODT] 1 odt PO BID PRN #6 odt 09/18/17 Ergocalciferol [Drisdol 50,000 1 cap PO Q7D #3 cap 09/24/17 Intl Units Cap] traZODone [Desyrel] 100 mg PO HS PRN #30 tab 09/24/17 Famotidine [Pepcid] 20 mg PO BID PRN #15 tab 09/27/17 Pantoprazole [Protonix EC Tab] 40 mg PO DAILY #30 ect 09/27/17 Famotidine [Pepcid] 20 mg PO BID #20 tab 11/28/17 Ondansetron ODT [Zofran ODT] 4 mg PO Q8H PRN #20 odt 11/28/17 Pantoprazole Sodium [Protonix] 40 mg PO DAILY #14 ect 11/28/17 - Allergies Allergies/Adverse Reactions: Allergies Allergy/AdvReac Type Severity Reaction Status Date / Time No Known Allergies Allergy Verified 11/28/17 11:27 Review of Systems Constitutional: Negative for: Fever, Chills Cardiovascular: Negative for: Chest Pain Respiratory: Negative for: Cough Gastrointestinal: Positive for: Abdominal Pain. Negative for: Nausea, Vomiting Skin: Negative for: Rash, Lesions Neurological: Negative for: Headache Physical Exam - Reviewed Nursing Documentation Reviewed: Yes Vital Signs Reviewed: Yes - Physical Exam Appears: Positive for: Well, No Acute Distress Skin: Positive for: Normal Color, Warm, Dry Eye Exam: Positive for: Normal appearance, EOMI, PERRL Cardiovascular/Chest: Positive for: Regular Rate, Rhythm Respiratory: Positive for: Normal Breath Sounds Gastrointestinal/Abdominal: Positive for: Normal Exam, Bowel Sounds, Soft, Tenderness (Mild epigastric). Negative for: Distended, Guarding, Rebound Back: Positive for: Normal Inspection Extremity: Positive for: Normal ROM Neurologic/Psych: Positive for: Alert, bread racker II-XII, Oriented - ECG O2 Sat by Pulse Oximetry: 98 Medical Decision Making Medical Decision Makin yo male with chronic abdominal pain. - accucheck Juice given. Disposition - Clinical Impression Clinical Impression: Alcoholic gastritis - Patient ED Disposition Is Patient to be Admitted: No - Disposition Referrals: [facility] [Outside] Disposition: Routine/Home Disposition Time: 11:35 Condition: STABLE Prescriptions: Famotidine [Pepcid] 20 mg PO BID #20 tab Ondansetron ODT [Zofran ODT] 4 mg PO Q8H PRN #20 odt PRN Reason: Nausea/Vomiting Instructions: Gastritis Forms: [employer] ([place]ian) Print Language: LAO
[2017-11-28 13:33] VITALS: BP 126/79; PULSE 81; RESP 14; TEMP 97.9
== END 2017-11-28 13:33 | disposition home or self-care (01) ==
LOC: H.ER 11:16
DX: K29.20 Alcoholic gastritis without bleeding (principal); I10 Essential (primary) hypertension

== ENCOUNTER 2018-03-08 20:54 | Emergency (ER) | payer SELFPAY ==
[2018-03-08 20:54] VITALS: BMI 32.0
[2018-03-08] MEDS ORDERED: Sodium Chloride 0.9% 1,000 ML IV STA (21:23)
--- NOTE | 2018-03-08 21:27 | ED PDOC ---
HPI: Abdomen Time Seen by Provider: 03/08/18 21:14 Chief Complaint (Nursing): GI Problem Chief Complaint (Provider): abdominal pain History Per: Patient History/Exam Limitations: no limitations Onset/Duration Of Symptoms: Days (1) Current Symptoms Are (Timing): Still Present Location Of Pain/Discomfort: Diffuse Quality Of Discomfort: Burning, "Pain" Associated Symptoms: Nausea, Vomiting Additional Complaint(s): 37 y/o male history of alcohol abuse, gastritis presents for evaluation of diffuse abdominal pain x 1 day. Patient states pain radiating up in to chest, with associated 3 episodes of vomiting. Patient also reports feeling "shaky", states last drink was yesterday. Denies fever, headache, dizziness, shortness of breath, palpitations, changes in bowel movements, urinary symptoms, recent travel. Past Medical History Reviewed: Historical Data, Nursing Documentation, Vital Signs Vital Signs: Last Vital Signs Temp 98.1 F 03/08/18 21:06 Pulse 79 03/08/18 22:00 Resp 18 03/08/18 22:00 BP 119/85 03/08/18 22:00 Pulse Ox 97 03/08/18 23:47 - Medical History PMH: Gastritis, HTN, Seizures Denies: Diabetes, Hepatitis, HIV, Sexually Transmitted Disease - Surgical History Surgical History: No Surg Hx - Family History Family History: States: Unknown Family Hx - Social History Current smoker - smoking cessation education provided: No Alcohol: > 2 Drinks/Day Drugs: Denies - Immunization History Hx Tetanus Toxoid Vaccination: Yes (2014) Hx Influenza Vaccination: Yes Hx Pneumococcal Vaccination: No - Home Medications Home Medications: Ambulatory Orders Medication Instructions Recorded Famotidine [Pepcid] 20 mg PO DAILY 03/04/18 Ondansetron [Zofran] 4 mg PO Q8H PRN #10 tab 03/08/18 Famotidine [Pepcid] 20 mg PO BID #20 tab 03/09/18 - Allergies Allergies/Adverse Reactions: Allergies Allergy/AdvReac Type Severity Reaction Status Date / Time No Known Allergies Allergy Verified 03/08/18 21:10 Review of Systems ROS Statement: Except As Marked, All Systems Reviewed And Found Negative Cardiovascular: Positive for: Chest Pain Gastrointestinal: Positive for: Nausea, Vomiting, Abdominal Pain Physical Exam - Reviewed Nursing Documentation Reviewed: Yes Vital Signs Reviewed: Yes - Physical Exam Appears: Positive for: Well, Non-toxic, Uncomfortable Head Exam: Positive for: ATRAUMATIC, NORMAL INSPECTION, NORMOCEPHALIC Skin: Positive for: Normal Color Eye Exam: Positive for: Normal appearance ENT: Positive for: Normal ENT Inspection Cardiovascular/Chest: Positive for: Regular Rate, Rhythm Respiratory: Positive for: Normal Breath Sounds Gastrointestinal/Abdominal: Positive for: Bowel Sounds, Soft, Tenderness ( epigastric) Back: Positive for: Normal Inspection Extremity: Positive for: Normal ROM Neurologic/Psych: Positive for: Alert, Oriented (x3) - Laboratory Results Result Diagrams: 03/08/18 21:42 03/08/18 21:42 - ECG ECG: Positive for: Viewed By Me (reviewed by ED attending) ECG Rhythm: Positive for: Sinus Tachycardia O2 Sat by Pulse Oximetry: 97 - Radiology X-Ray: Viewed By Me X-Ray Interpretation: No Acute Disease - Progress ED Course And Treament: labs, ekg, chest xray, IV fluids, IV ativan, IV pepcid, IV zofran On re-eval, patient resting comfortably; states he is feeling better. Tolerated PO Patient seen at [facility] ED earlier today and given information for detox centers ; advised to follow up as directed Return precautions given Rx pepcid, zofran given upon discharge Disposition - Clinical Impression Clinical Impression: Alcoholic gastritis, Alcohol abuse with intoxication - Patient ED Disposition Is Patient to be Admitted: No Counseled Patient/Family Regarding: Studies Performed, Diagnosis, Need For Followup, Rx Given - Disposition Referrals: [facility] [Outside] Disposition: Routine/Home Disposition Time: 00:49 Condition: IMPROVED Prescriptions: Famotidine [Pepcid] 20 mg PO BID #20 tab Ondansetron [Zofran] 4 mg PO Q8H PRN #10 tab PRN Reason: Nausea/Vomiting Instructions: Gastritis, Alcohol Abuse and Alcoholism (DC) Print Language: SERBIAN
[2018-03-08 21:52] LABS: BASO % 0.5 % (0.0-2.0); HEMOGLOBIN 13.9 g/dL (12.0-18.0); LYMPH # 0.9 K/uL (1.0-4.3); LYMPH % 31.1 % (20.0-40.0); MEAN CELL VOLUME 86.4 fl (80.0-94.0); MEAN CORPUSCULAR HEMOGLOBIN 29.2 pg (27.0-31.0); MEAN CORPUSCULAR HGB CONC 33.8 g/dL (33.0-37.0); MEAN PLATELET VOLUME 8.4 fl (7.2-11.7); MONO # 0.2 K/uL (0.0-0.8); MONO % 6.2 % (0.0-10.0); NEUT # 1.8 K/uL (1.8-7.0); NEUT % 62.2 % (50.0-75.0); NRBC % 0.4 % (0.0-0.0); RBC 4.77 Mil/uL (4.40-5.90); WHITE BLOOD COUNT 2.9 K/uL (4.8-10.8)
[2018-03-08 21:57] LABS: ALB/GLOB RATIO 1.1 (1.0-2.1); ALBUMIN 4.3 g/dL (3.5-5.0); ALT/SGPT 39 U/L (21-72); AST/SGOT 79 U/L (17-59); BLOOD UREA NITROGEN 11 mg/dl (9-20); CALCIUM 8.3 mg/dL (8.4-10.2); GFR AFRICAN-AMERICAN > 60; GFR NON-AFRICAN AMERICAN > 60; LIPASE 288 U/L (23-300)
[2018-03-08 22:01] VITALS: RESP 18
[2018-03-08 23:26] LABS: SQUAMOUS EPITHIAL < 1 /hpf (0-5); URINE BILIRUBIN NEGATIVE (NEGATIVE); URINE BLOOD NEGATIVE (NEGATIVE); URINE CLARITY SLIGHTY-CLOUDY (Clear); URINE COLOR YELLOW (YELLOW); URINE GLUCOSE (UA) NEG (Normal); URINE HYALINE CAST 0-2 /hpf (0-2); URINE LEUKOCYTE ESTERASE NEG Leu/uL (Negative); URINE PROTEIN NEGATIVE (NEGATIVE); URINE UROBILINOGEN 0.2-1.0 mg/dL (0.2-1.0)
[2018-03-09 00:14] LABS: BARBITURATES, UR NEGATIVE (NEGATIVE); BENZODIAZEPINES, UR NEGATIVE (NEGATIVE); OPIATES, UR NEGATIVE (NEGATIVE); PHENCYCLIDINE, UR NEGATIVE (NEGATIVE)
[2018-03-09 00:59] VITALS: BP 121/71; PULSE 89; TEMP 98.7; O2SAT 100
--- NOTE | 2018-03-09 10:32 | RAD ---
HISTORY: COMPARISON: 09/27/2017. TECHNIQUE: Chest PA and lateral FINDINGS: LINES AND TUBES: None. LUNG AND PLEURA: The lungs are well inflated and clear. No pleural effusion or pneumothorax. HEART AND MEDIASTINUM: The heart is not enlarged. The hilar and mediastinal contours are within normal limits. SKELETAL STRUCTURES: The bony structures are within normal limits for the patient's age. VISUALIZED UPPER ABDOMEN: Normal. OTHER FINDINGS: None. IMPRESSION: No active pulmonary disease.
== END 2018-03-09 01:36 | disposition home or self-care (01) ==
LOC: H.ER 20:54
DX: K29.20 Alcoholic gastritis without bleeding (principal); F10.129 Alcohol abuse with intoxication, unspecified; I10 Essential (primary) hypertension
CPT/HCPCS: 71046; 80053; 81003; 83690; 83735; 84100; 84484; 85025; 96361; 96374; 96375; 99283; G0480; J2060; J2405; J7030

== ENCOUNTER 2018-08-24 11:08 | Emergency (ER) | payer OTHER ==
[2018-08-24 11:09] VITALS: BMI 32.0
[2018-08-24 11:13] VITALS: RESP 20
[2018-08-24 11:26] VITALS: O2SAT 98
[2018-08-24] MEDS ORDERED: Sodium Chloride 0.9% 1,000 ML IV STA (11:30)
--- NOTE | 2018-08-24 11:42 | ED PDOC ---
HPI: Influenza Time Seen by Provider: 08/24/18 11:26 Chief Complaint: Cough, Cold, Congestion Chief Complaint (Provider): Cough, Cold, Congestion History Per: Patient Additional complaint(s):: Abdullahi Escamilla is a 37 year old male with a past medical history of HTN, who presents to the emergency department complaining of abdominal pain, associated with fever and vomiting, onset x2 days. Patient also states that he has general malaise and body aches. He denies diarrhea or any other physical complaints. PMD: no provider Past Medical History Reviewed: Historical Data, Nursing Documentation, Vital Signs Vital Signs: Last Vital Signs Temp 98.5 F 08/24/18 11:11 Pulse 114 H 08/24/18 11:11 Resp 20 08/24/18 11:11 BP 152/92 H 08/24/18 11:11 Pulse Ox 98 08/24/18 11:24 - Medical History PMH: Gastritis, HTN, Seizures Denies: Diabetes, Hepatitis, HIV, Chronic Kidney Disease, Sexually Transmitted Disease - Surgical History Surgical History: No Surg Hx - Family History Family History: States: Unknown Family Hx - Immunization History Hx Tetanus Toxoid Vaccination: Yes (2014) Hx Influenza Vaccination: No Hx Pneumococcal Vaccination: No - Home Medications Home Medications: Ambulatory Orders Medication Instructions Recorded Famotidine [Pepcid] 20 mg PO Q12 #20 tab 08/24/18 Ondansetron [Zofran] 4 mg PO Q8H #10 tab 08/24/18 - Allergies Allergies/Adverse Reactions: Allergies Allergy/AdvReac Type Severity Reaction Status Date / Time No Known Allergies Allergy Verified 08/24/18 11:16 Review of Systems ROS Statement: Except As Marked, All Systems Reviewed And Found Negative Constitutional: Positive for: Fever, Malaise, Other (body aches) Gastrointestinal: Positive for: Vomiting, Abdominal Pain. Negative for: Diarrh ea Physical Exam - Reviewed Nursing Documentation Reviewed: Yes Vital Signs Reviewed: Yes - Physical Exam Appears: Positive for: Non-toxic, No Acute Distress Head Exam: Positive for: ATRAUMATIC, NORMOCEPHALIC Skin: Positive for: Normal Color, Warm, Dry Eye Exam: Positive for: EOMI, Normal appearance, PERRL ENT: Positive for: Normal ENT Inspection Neck: Positive for: Normal, Painless ROM Cardiovascular/Chest: Positive for: Regular Rate, Rhythm. Negative for: Murmur Respiratory: Positive for: Normal Breath Sounds. Negative for: Respiratory Distress Gastrointestinal/Abdominal: Positive for: Normal Exam, Soft. Negative for: Tenderness Back: Positive for: Normal Inspection. Negative for: L CVA Tenderness, R CVA Tenderness, Vertebral Tenderness Extremity: Positive for: Normal ROM. Negative for: Pedal Edema, Deformity Neurologic/Psych: Positive for: Alert, Oriented. Negative for: Motor/Sensory Deficits Medical Decision Making Medical Decision Making: Time: 1131 Impression: Rule out viral illness Plan: --CMP --CBC with differential --Influenza A B --Pepcid 20 mg IVP --Zofran inj 4 mg IVP --Tylenol 650 mg PO --Sodium chloride 1,000 ml Scribe Attestation: Documented by Wallace Brock, acting as a scribe for Celso Mitchell MD. Provider Scribe Attestation: All medical record entries made by the Scribe were at my direction and p ersonally dictated by me. I have reviewed the chart and agree that the record accurately reflects my personal performance of the history, physical exam, medical decision making, and the department course for this patient. I have also personally directed, reviewed, and agree with the discharge instructions and disposition. - Laboratory Results Result Diagrams: 08/24/18 11:38 08/24/18 11:38 - ECG O2 Sat by Pulse Oximetry: 98 (RA) Pulse Ox Interpretation: Normal Disposition - Clinical Impression Clinical Impression: Gastroenteritis - Patient ED Disposition Is Patient to be Admitted: No Counseled Patient/Family Regarding: Studies Performed, Diagnosis, Need For Followup, Rx Given - Disposition Referrals: [facility] [Outside] Disposition: Routine/Home Disposition Time: 12:56 Condition: FAIR Prescriptions: Famotidine [Pepcid] 20 mg PO Q12 #20 tab Ondansetron [Zofran] 4 mg PO Q8H #10 tab Instructions: Gastroenteritis (ED) Forms: [employer] (Welsh) Print Language: CITIZEN [place]
[2018-08-24 12:14] LABS: BASO % 0.7 % (0.0-2.0); HEMOGLOBIN 13.6 g/dL (12.0-18.0); LYMPH % 33.9 % (20.0-40.0); MEAN CELL VOLUME 88.6 fl (80.0-94.0); MEAN CORPUSCULAR HEMOGLOBIN 29.1 pg (27.0-31.0); MEAN CORPUSCULAR HGB CONC 32.9 g/dL (33.0-37.0); MEAN PLATELET VOLUME 8.3 fl (7.2-11.7); MONO # 0.2 K/uL (0.0-0.8); MONO % 5.9 % (0.0-10.0); NEUT # 1.7 K/uL (1.8-7.0); NEUT % 59.5 % (50.0-75.0); NRBC % 0.3 % (0.0-0.0); RBC 4.67 Mil/uL (4.40-5.90); RED CELL DISTRIBUTION WIDTH 15.2 % (11.5-14.5); WHITE BLOOD COUNT 2.8 K/uL (4.8-10.8)
[2018-08-24 12:26] LABS: ALB/GLOB RATIO 1.1 (1.0-2.1); ALBUMIN 4.2 g/dL (3.5-5.0); ALT/SGPT 45 U/L (21-72); AST/SGOT 75 U/L (17-59); BLOOD UREA NITROGEN 10 mg/dl (9-20); CALCIUM 7.9 mg/dL (8.4-10.2); GFR NON-AFRICAN AMERICAN > 60
[2018-08-24 13:11] VITALS: BP 142/80; PULSE 82; TEMP 98
--- NOTE | 2018-08-25 00:09 | CARD ---
APPROVED REPORT Date of service: 08/24/2018 EKG Measurement Heart [id number] [id number] <Conclusion> Normal sinus rhythm Leftward axis Diffuse minor NDSTT abnormalities NPT
== END 2018-08-24 12:57 | disposition home or self-care (01) ==
LOC: H.ER 11:08
DX: K52.9 Noninfective gastroenteritis and colitis, unspecified (principal); I10 Essential (primary) hypertension
CPT/HCPCS: 80053; 85025; 87804; 93005; 96374; 96375; 99283; J2405; J7030